=== PATIENT | female | born 1995 | race Caucasian/White ===

== ENCOUNTER 2017-01-18 20:38 | Emergency (ER) | payer BC, OTHER ==
[2017-01-18 20:49] VITALS: BP 134/78
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
== END 2017-01-18 21:28 | disposition left against medical advice (07) ==
LOC: MW.ED 20:38
DX: M54.2 Cervicalgia (principal); R51 Headache; F17.210 Nicotine dependence, cigarettes, uncomplicated; Z91.040 Latex allergy status; Z90.49 Acquired absence of other specified parts of digestive tract; Y04.0XXA Assault by unarmed brawl or fight, initial encounter
CPT/HCPCS: 70450; 70450-26; 72125; 72125-26; 99283; 99284-25